=== PATIENT | male | born 1985 | race Caucasian/White ===

== ENCOUNTER 2016-07-27 15:26 | Emergency (ER) | payer BC ==
[~2016-07-27] VITALS: Ht 185.4 cm; Wt 84.1 kg
[2016-07-27] MEDS ORDERED: MOTRIN800 MG PO (15:58)
[2016-07-27 16:29] VITALS: BP 133/83
== END 2016-07-27 16:34 | disposition home or self-care (01) | DRG 563 ==
LOC: ED 15:26
DX: S43.51XA Sprain of right acromioclavicular joint, initial encounter (principal); F17.210 Nicotine dependence, cigarettes, uncomplicated; S40.011A Contusion of right shoulder, initial encounter; V86.59XA Driver of other special all-terrain or other off-road motor vehicle injured in nontraffic accident, initial encounter; Y93.89 Activity, other specified